=== PATIENT | female | born 1935 | race Caucasian/White ===

== ENCOUNTER → 2022-04-12 | Outpatient (REF) | payer MEDICARE, OTHER | LOC: M LAB REF 12:14 | PROVIDERS: ATTEND Registered Nurse | DX: R30.0 Dysuria (principal) ==

== ENCOUNTER 2022-06-05 16:53 | Inpatient (IN) | payer MEDICARE, OTHER ==
[~2022-06-05] VITALS: Ht 165.1 cm; Wt 97.9 kg
[2022-06-05] MEDS ORDERED: LEVO100T5 PO (17:04)
[2022-06-05] MEDS ORDERED: PREG100C PO (17:04)
[2022-06-05] MEDS ORDERED: DULO1CAP4 PO (17:04)
[2022-06-05] MEDS ORDERED: ACETAMINOPHEN 500 MG TAB PO ONE (18:10)
[2022-06-05 18:34] LABS: BASO % 0.4 % (0.0-1.0); HEMOGLOBIN 13.6 g/dl (12.0-15.5); LYMPH # 0.9 10^3/uL (1.5-5.0); LYMPH % 11.6 % (24.0-44.0); MEAN CORPUSCULAR HGB CONC 33.2 g/dl (32.0-36.5); MEAN CORPUSCULAR VOLUME 93.4 fl (80.0-96.0); MONO % 13.2 % (2.0-8.0); NEUTROPHILS # 5.8 10^3/uL (1.5-8.5); NEUTROPHILS % 74.5 % (36.0-66.0); PLATELET COUNT, AUTOMATED 166 10^3/uL (150-450); RED BLOOD COUNT 4.39 10^6/uL (4.00-5.40); WHITE BLOOD COUNT 7.7 10^3/uL (4.0-10.0)
[2022-06-05 18:47] VITALS: O2SAT 95
[2022-06-05] MEDS: ALBUTEROL 90 MCG/ACT 8GM HFA INHALER INH SCH ×3 (18:50→19:36)
[2022-06-05 18:52] LABS: INR 1.02; PROTHROMBIN TIME 13.8 SECONDS (12.7-14.5)
[2022-06-05 18:53] LABS: PARTIAL THROMBOPLASTIN TIME 34.8 SECONDS (25.9-37.0)
[2022-06-05 18:55] LABS: D-DIMER QUANT 824.77 ng/ml (<500)
[2022-06-05 19:08] LABS: CK-MB VALUE MASS < 1.0 NG/ML (<3.6); CPK CREATINE PHOSPHOKINASE 192 U/L (26-192); MB/CK RELATIVE INDEX 0.52 (< OR =4)
[2022-06-05 19:36] LABS: ALBUMIN 3.4 GM/DL (3.2-5.2); BILIRUBIN,TOTAL 0.7 MG/DL (0.2-1.0); CALCIUM LEVEL 8.9 MG/DL (8.8-10.2); CREATININE FOR GFR 1.07 MG/DL (0.55-1.30); GLOMERULAR FILTRATION RATE 51.6 (>32); POTASSIUM SERUM 4.2 MEQ/L (3.5-5.1); TOTAL PROTEIN 7.4 GM/DL (6.4-8.2)
[2022-06-05] MEDS ORDERED: ISOVUE-370 76% 100ML VIAL As Ordered ONE (19:37)
[2022-06-05] MEDS ORDERED: APAP325T4 PO (21:37)
[2022-06-05] MEDS ORDERED: MECL-86 PO (21:37)
[2022-06-05] MEDS ORDERED: FAMO1TAB11 PO (21:37)
[2022-06-05] MEDS ORDERED: HOME MED LIST COMPLETE! XX SCH (21:40)
[2022-06-05] MEDS ORDERED: NS 1,000 ML IV SCH (21:50)
[2022-06-05] MEDS ORDERED: guaiFENesin SYRUP 200MG 10ML UDC PO PRN (21:50)
[2022-06-05] MEDS ORDERED: COMBIVENT RESPIMAT 100-20MCG INHALER 4GM INH PRN (21:50)
[2022-06-05] MEDS ORDERED: REMDESIVIR 200 MG in NS 250 ML IV ONE (22:00)
[2022-06-05 22:19] LABS: FREE T4 1.14 NG/DL (0.76-1.46); THYROID STIMULATING HORMONE 0.659 uIU/ML (0.358-3.740)
[2022-06-05 22:20] VITALS: BP 122/51
[2022-06-05 22:45] VITALS: BP_SYST 111; BP_SYST 120; BP_SYST 122; BP_DIAS 51; BP_DIAS 58
[2022-06-05] MEDS: FAMOTIDINE 20 MG TAB PO SCH (23:29)
[2022-06-05] MEDS: PREGABALIN 100 MG CAP (LYRICA) PO SCH (23:29)
[2022-06-05] MEDS: ACETAMINOPHEN TAB 650MG DOSE (2X325MG) PO PRN (23:29)
[2022-06-05] MEDS: MECLIZINE 25 MG TABLET PO SCH (23:29)
[2022-06-05] MEDS: DULoxetine 20 MG CAP (CYMBALTA) PO SCH (23:56)
[2022-06-06] MEDS ORDERED: SODIUM CHLORIDE 0.9% INJ 10 ML SYR IV ONE
[2022-06-06 05:52] LABS: BASO % 0.4 % (0.0-1.0); EOS % 0.2 % (0.0-3.0); HEMATOCRIT 36.9 % (36.0-47.0); LYMPH % 21.6 % (24.0-44.0); MEAN CORPUSCULAR HEMOGLOBIN 30.2 pg (27.0-33.0); MEAN CORPUSCULAR HGB CONC 32.5 g/dl (32.0-36.5); MEAN CORPUSCULAR VOLUME 92.9 fl (80.0-96.0); MONO % 20.8 % (2.0-8.0); NEUTROPHILS # 2.7 10^3/uL (1.5-8.5); NEUTROPHILS % 56.8 % (36.0-66.0); PLATELET COUNT, AUTOMATED 144 10^3/uL (150-450); RED BLOOD COUNT 3.97 10^6/uL (4.00-5.40); WHITE BLOOD COUNT 4.8 10^3/uL (4.0-10.0)
[2022-06-06] MEDS: LEVOTHYROXINE 100MCG TABLET (0.1MG) PO SCH (06:08)
[2022-06-06 06:09] VITALS: BP 114/56
[2022-06-06 06:17] LABS: ALT/SGPT 15 U/L (12-78); BILIRUBIN,DIRECT 0.2 MG/DL (0.0-0.2); BILIRUBIN,TOTAL 0.5 MG/DL (0.2-1.0); BLOOD UREA NITROGEN 21 MG/DL (7-18); CALCIUM LEVEL 8.6 MG/DL (8.8-10.2); CARBON DIOXIDE LEVEL 26 MEQ/L (21-32); CHLORIDE LEVEL 106 MEQ/L (98-107); CREATININE FOR GFR 0.89 MG/DL (0.55-1.30); GLOMERULAR FILTRATION RATE > 60.0 (>32); GLUCOSE, FASTING 103 MG/DL (70-100); POTASSIUM SERUM 3.4 MEQ/L (3.5-5.1); SODIUM LEVEL 138 MEQ/L (136-145); TOTAL PROTEIN 6.4 GM/DL (6.4-8.2)
[2022-06-06] MEDS: ACETAMINOPHEN TAB 650MG DOSE (2X325MG) PO PRN ×2 (06:39→15:42)
[2022-06-06 06:43] LABS: APPEARANCE, URINE MANUAL CLEAR (CLEAR); COLOR, URINE MANUAL YELLOW (YELLOW); SPECIFIC GRAVITY,URINE MANUAL 1.015 (1.002-1.035)
[2022-06-06 06:44] LABS: BILIRUBIN, URINE MANUAL NEGATIVE (NEGATIVE); BLOOD URINE MANUAL POSITIVE (NEGATIVE); GLUCOSE, URINE (UA) MANUAL NEGATIVE (NEGATIVE); KETONE, URINE MANUAL NEGATIVE (NEGATIVE); LEUKOCYTE ESTERASE, URINE MAN NEGATIVE (NEGATIVE); NITRITE, URINE MANUAL NEGATIVE (NEGATIVE); PROTEIN, URINE MANUAL TRACE mg/dL (NEGATIVE); UROBILINOGEN, URINE MANUAL NORMAL (NORMAL)
[2022-06-06 07:02] LABS: RBC, URINE 0-1 /hpf (0-3); SQUAMOUS EPITHELIAL CELL URINE SMALL AMOUNT /hpf (SMALL AMT)
[2022-06-06 07:04] LABS: AMORPHOUS SEDIMENT, URINE SMALL AMOUNT (NEGATIVE); BACTERIA, URINE SMALL AMOUNT; HYALINE CAST, URINE NONE SEEN /lpf (0-1)
[2022-06-06] MEDS: MECLIZINE 25 MG TABLET PO SCH ×2 (08:25→20:01)
[2022-06-06] MEDS: PREGABALIN 100 MG CAP (LYRICA) PO SCH ×2 (08:25→20:01)
[2022-06-06] MEDS: ENOXAPARIN 40MG/0.4ML SYRINGE (J1650 PER 10MG) SC SCH (08:26)
[2022-06-06 14:00] VITALS: BP 130/73
[2022-06-06] MEDS: REMDESIVIR 100 MG in NS 250 ML IV SCH (15:20)
[2022-06-06] MEDS: SODIUM CHLORIDE 0.9% INJ 10 ML SYR IV SCH (15:20)
[2022-06-06 15:37] VITALS: BP_SYST 123; BP_SYST 128; BP_SYST 131; BP_DIAS 57; BP_DIAS 58; BP_DIAS 63
[2022-06-06 19:58] VITALS: BP 144/63
[2022-06-06] MEDS: DULoxetine 20 MG CAP (CYMBALTA) PO SCH (20:01)
[2022-06-06] MEDS: FAMOTIDINE 20 MG TAB PO SCH (20:01)
[2022-06-06] MEDS ORDERED: REMDESIVIR 100 MG in NS 250 ML IV SCH (21:00)
[2022-06-06] MEDS ORDERED: SODIUM CHLORIDE 0.9% INJ 10 ML SYR IV SCH (22:00)
[2022-06-07 05:35] VITALS: BP 99/52
[2022-06-07 05:45] VITALS: BP 141/69
[2022-06-07] MEDS: LEVOTHYROXINE 100MCG TABLET (0.1MG) PO SCH (05:45)
[2022-06-07 05:50] LABS: BASO % 0.8 % (0.0-1.0); EOS # 0.1 10^3/uL (0.0-0.5); EOS % 1.3 % (0.0-3.0); HEMATOCRIT 38.7 % (36.0-47.0); HEMOGLOBIN 12.8 g/dl (12.0-15.5); LYMPH # 1.2 10^3/uL (1.5-5.0); LYMPH % 30.9 % (24.0-44.0); MEAN CORPUSCULAR HEMOGLOBIN 30.5 pg (27.0-33.0); MEAN CORPUSCULAR HGB CONC 33.1 g/dl (32.0-36.5); MEAN CORPUSCULAR VOLUME 92.4 fl (80.0-96.0); MONO # 0.8 10^3/uL (0.0-0.8); MONO % 19.6 % (2.0-8.0); NEUTROPHILS # 1.8 10^3/uL (1.5-8.5); NEUTROPHILS % 47.1 % (36.0-66.0); PLATELET COUNT, AUTOMATED 148 10^3/uL (150-450); RED BLOOD COUNT 4.19 10^6/uL (4.00-5.40); WHITE BLOOD COUNT 3.8 10^3/uL (4.0-10.0)
[2022-06-07 06:00] VITALS: BP 99/52
[2022-06-07 06:00] LABS: INR 1.05; PROTHROMBIN TIME 14.1 SECONDS (12.7-14.5)
[2022-06-07 06:01] LABS: PARTIAL THROMBOPLASTIN TIME 39.2 SECONDS (25.9-37.0)
[2022-06-07 06:28] LABS: ALBUMIN 3.1 GM/DL (3.2-5.2); ALT/SGPT 20 U/L (12-78); BILIRUBIN,DIRECT 0.1 MG/DL (0.0-0.2); BILIRUBIN,TOTAL 0.4 MG/DL (0.2-1.0); BLOOD UREA NITROGEN 22 MG/DL (7-18); CALCIUM LEVEL 8.6 MG/DL (8.8-10.2); CARBON DIOXIDE LEVEL 24 MEQ/L (21-32); CHLORIDE LEVEL 107 MEQ/L (98-107); CREATININE FOR GFR 0.85 MG/DL (0.55-1.30); FERRITIN 214 NG/ML (8-252); GLOMERULAR FILTRATION RATE > 60.0 (>32); GLUCOSE, FASTING 87 MG/DL (70-100); LDH LACTATE DEHYDROGENASE 169 U/L (84-246); NT-PRO BNP 179 PG/ML (<450); SODIUM LEVEL 137 MEQ/L (136-145); TOTAL PROTEIN 6.8 GM/DL (6.4-8.2)
[2022-06-07] MEDS: ENOXAPARIN 40MG/0.4ML SYRINGE (J1650 PER 10MG) SC SCH (10:06)
[2022-06-07] MEDS: PREGABALIN 100 MG CAP (LYRICA) PO SCH (10:06)
[2022-06-07] MEDS: MECLIZINE 25 MG TABLET PO SCH (10:06)
[2022-06-07 13:19] VITALS: BP 124/62
[2022-06-07] MEDS: REMDESIVIR 100 MG in NS 250 ML IV SCH (13:24)
[2022-06-07] MEDS ORDERED: BENZ200C70 PO (13:41)
[2022-06-07] MEDS ORDERED: GUAI100L56 PO (13:41)
[2022-06-07] MEDS: SODIUM CHLORIDE 0.9% INJ 10 ML SYR IV SCH (14:36)
== END 2022-06-07 14:46 | disposition home health service (06) | DRG 178 ==
LOC: M ED 16:53 → M ED INP 16:54 → M MSPAV 22:15 → OBSVTOIN 06-06 08:02
PROVIDERS: ADMIT Family Medicine; ATTEND Internal Medicine
PROC: XW033E5 Introduction of Remdesivir Anti-infective into Peripheral Vein, Percutaneous Approach, New Technology Group 5 (ICD-10-PCS; principal; 2022-06-06)
DX: U07.1 COVID-19 (principal); J98.11 Atelectasis; R26.89 Other abnormalities of gait and mobility; K21.9 Gastro-esophageal reflux disease without esophagitis; E03.9 Hypothyroidism, unspecified; R42 Dizziness and giddiness; M19.90 Unspecified osteoarthritis, unspecified site; G62.9 Polyneuropathy, unspecified; E86.0 Dehydration; Z66 Do not resuscitate; F32.A Depression, unspecified; F41.9 Anxiety disorder, unspecified; R53.81 Other malaise; Z79.899 Other long term (current) drug therapy; Z91.013 Allergy to seafood; Z79.890 Hormone replacement therapy

== ENCOUNTER 2022-09-23 10:53 | Emergency (ER) | payer MEDICARE, OTHER ==
[~2022-09-23] VITALS: Ht 160 cm; Wt 93.2 kg
[~2022-09-23 10:53] MED LIST: APAP325T4 PO; BENZ200C70 PO; DULO1CAP4 PO; FAMO1TAB11 PO; GUAI100L56 PO; LEVO100T5 PO; MECL-86 PO; PREG100C PO
[2022-09-23 11:40] LABS: BASO % 0.5 % (0.0-1.0); EOS # 0.1 10^3/uL (0.0-0.5); EOS % 1.2 % (0.0-3.0); HEMATOCRIT 42.5 % (36.0-47.0); HEMOGLOBIN 13.9 g/dl (12.0-15.5); LYMPH # 1.5 10^3/uL (1.5-5.0); LYMPH % 18.7 % (24.0-44.0); MEAN CORPUSCULAR HGB CONC 32.7 g/dl (32.0-36.5); MEAN CORPUSCULAR VOLUME 94.7 fl (80.0-96.0); MONO # 0.5 10^3/uL (0.0-0.8); MONO % 6.6 % (2.0-8.0); NEUTROPHILS # 5.7 10^3/uL (1.5-8.5); NEUTROPHILS % 72.7 % (36.0-66.0); PLATELET COUNT, AUTOMATED 214 10^3/uL (150-450); RED BLOOD COUNT 4.49 10^6/uL (4.00-5.40); WHITE BLOOD COUNT 7.8 10^3/uL (4.0-10.0)
[2022-09-23 12:07] LABS: LIPASE 76 U/L (12-53)
[2022-09-23 12:09] LABS: ALBUMIN 3.7 G/DL (3.2-5.2); ALKALINE PHOSPHATASE 134 U/L (46-116); ALT/SGPT 43 U/L (7.0-40); AST/SGOT 36 U/L (<34); BILIRUBIN,DIRECT 0.2 MG/DL (<0.4); BILIRUBIN,TOTAL 0.4 MG/DL (0.3-1.2); BLOOD UREA NITROGEN 24 MG/DL (9-23); CALCIUM LEVEL 9.8 MG/DL (8.3-10.6); CARBON DIOXIDE LEVEL 22 MMOL/L (20-31); CHLORIDE LEVEL 107 MMOL/L (98-107); CREATININE FOR GFR 0.85 MG/DL (0.55-1.30); GLOMERULAR FILTRATION RATE > 60.0 (>32); GLUCOSE, FASTING 104 MG/DL (74-106); POTASSIUM SERUM 4.2 MMOL/L (3.5-5.1); SODIUM LEVEL 140 MMOL/L (136-145); TOTAL PROTEIN 7.4 G/DL (5.7-8.2)
[2022-09-23] MEDS ORDERED: NS 500 ML IV ONE (12:40)
[2022-09-23 13:04] LABS: CPK CREATINE PHOSPHOKINASE 195 U/L (34-145)
[2022-09-23 13:20] VITALS: BP 151/72
[2022-09-23 13:23] LABS: RSV AMPLIFICATION NEGATIVE (NEGATIVE)
[2022-09-23 14:38] LABS: APPEARANCE, URINE MANUAL HAZY (CLEAR); COLOR, URINE MANUAL YELLOW (YELLOW)
[2022-09-23 14:39] LABS: BILIRUBIN, URINE MANUAL NEGATIVE (NEGATIVE); BLOOD URINE MANUAL POSITIVE (NEGATIVE); GLUCOSE, URINE (UA) MANUAL NEGATIVE (NEGATIVE); KETONE, URINE MANUAL NEGATIVE (NEGATIVE); LEUKOCYTE ESTERASE, URINE MAN NEGATIVE (NEGATIVE); NITRITE, URINE MANUAL NEGATIVE (NEGATIVE); PROTEIN, URINE MANUAL 1+ mg/dL (NEGATIVE); UROBILINOGEN, URINE MANUAL NORMAL (NORMAL)
[2022-09-23 14:53] LABS: BACTERIA, URINE SMALL AMOUNT; CALCIUM OXALATE CRYSTALS,URINE SMALL AMOUNT /hpf; RBC, URINE NONE SEEN /hpf (0-3); SQUAMOUS EPITHELIAL CELL URINE SMALL AMOUNT /hpf (SMALL AMT)
[2022-09-23 14:54] LABS: HYALINE CAST, URINE NONE SEEN /lpf (0-1)
[2022-09-23] MEDS ORDERED: DICY10CA13 PO (16:15)
== END 2022-09-23 16:34 | disposition home or self-care (01) ==
LOC: M ED 10:53
DX: R19.7 Diarrhea, unspecified (principal); S09.90XA Unspecified injury of head, initial encounter; W19.XXXA Unspecified fall, initial encounter; Y92.002 Bathroom of unspecified non-institutional (private) residence as the place of occurrence of the external cause; Y93.89 Activity, other specified; E03.9 Hypothyroidism, unspecified; K21.9 Gastro-esophageal reflux disease without esophagitis; M85.88 Other specified disorders of bone density and structure, other site; Z79.890 Hormone replacement therapy

== ENCOUNTER → 2022-12-10 | Outpatient (REF) | payer MEDICARE, OTHER ==
[~2022-12-10] MED LIST changes: +DICY10CA13 PO
== END ==
LOC: M LAB REF 17:02
PROVIDERS: ATTEND Nurse Practitioner Family
DX: N39.0 Urinary tract infection, site not specified (principal)

== ENCOUNTER 2024-07-06 10:55 | Inpatient (IN) | payer MEDICARE, OTHER ==
[~2024-07-06] VITALS: Ht 152.4 cm; Wt 98.8 kg
[2024-07-06] MEDS: ASPIRIN 81MG ENTERIC TABLET PO SCH (09:00)
[~2024-07-06 10:55] MED LIST changes: +DICY-61 PO; -DICY10CA13 PO; -PREG100C PO; +PREG100C2 PO
[2024-07-06] MEDS: LIDOCAINE 2% 5ML JELLY UROJET TOP ONE (11:10)
[2024-07-06] MEDS ORDERED: ISOVUE-370 76% 100ML VIAL As Ordered ONE (11:16)
[2024-07-06 11:43] LABS: BASO % 0.6 % (0.0-1.0); EOS # 0.2 10^3/uL (0.0-0.5); EOS % 3.6 % (0.0-3.0); HEMATOCRIT 40.9 % (36.0-47.0); HEMOGLOBIN 13.5 g/dl (12.0-15.5); LYMPH # 1.5 10^3/uL (1.5-5.0); LYMPH % 29.2 % (24.0-44.0); MEAN CORPUSCULAR HEMOGLOBIN 31.7 pg (27.0-33.0); MONO # 0.5 10^3/uL (0.0-0.8); MONO % 9.1 % (2.0-8.0); NEUTROPHILS # 2.9 10^3/uL (1.5-8.5); NEUTROPHILS % 57.3 % (36.0-66.0); PLATELET COUNT, AUTOMATED 193 10^3/uL (150-450); RED BLOOD COUNT 4.26 10^6/uL (4.00-5.40)
[2024-07-06 11:58] LABS: INR 1.13; PARTIAL THROMBOPLASTIN TIME 31.3 SECONDS (24.8-34.2); PROTHROMBIN TIME 14.2 SECONDS (12.5-14.5)
[2024-07-06 12:16] LABS: CPK CREATINE PHOSPHOKINASE 70 U/L (34-145)
[2024-07-06 12:24] LABS: ALBUMIN 3.3 G/DL (3.2-5.2); ALKALINE PHOSPHATASE 103 U/L (46-116); ALT/SGPT 13 U/L (7.0-40); AST/SGOT 16 U/L (<34); BILIRUBIN,DIRECT 0.2 MG/DL (<0.4); BILIRUBIN,TOTAL 0.7 MG/DL (0.3-1.2); BLOOD UREA NITROGEN 15 MG/DL (9-23); CALCIUM LEVEL 9.1 MG/DL (8.3-10.6); CARBON DIOXIDE LEVEL 26 MMOL/L (20-31); CHLORIDE LEVEL 109 MMOL/L (98-107); CK-MB VALUE MASS < 1.0 NG/ML (<3.6); CREATININE FOR GFR 0.81 MG/DL (0.55-1.30); GLOMERULAR FILTRATION RATE > 60.0 (>32); GLUCOSE, FASTING 110 MG/DL (74-106); MB/CK RELATIVE INDEX 1.42 (< OR =4); POTASSIUM SERUM 4.2 MMOL/L (3.5-5.1); SODIUM LEVEL 138 MMOL/L (136-145); TOTAL PROTEIN 7.1 G/DL (5.7-8.2)
[2024-07-06 13:10] VITALS: O2SAT 96
[2024-07-06 13:12] VITALS: TEMP 98
[2024-07-06 13:25] VITALS: O2SAT 97
[2024-07-06] MEDS: cefTRIAXone SOD 1 GM in DEXTROSE 5% (D5W) MINI-BAG/ADV 50 ML IV ONE (13:48)
[2024-07-06] MEDS: NS 1,000 ML IV ONE (13:48)
[2024-07-06 13:55] LABS: CK-MB VALUE MASS < 1.0 NG/ML (<3.6)
[2024-07-06 13:57] LABS: CPK CREATINE PHOSPHOKINASE 65 U/L (34-145); MB/CK RELATIVE INDEX 1.53 (< OR =4)
[2024-07-06] MEDS ORDERED: MYRB25TA PO (14:30)
[2024-07-06] MEDS ORDERED: HOME MED LIST COMPLETE! XX SCH (14:35)
[2024-07-06] MEDS ORDERED: MAALOX 30 ML SUSP *UDC PO PRN (15:05)
[2024-07-06] MEDS ORDERED: MOM 30ML SUSPENSION UDC PO PRN (15:05)
[2024-07-06] MEDS ORDERED: ACETAMINOPHEN 325 MG TAB PO PRN (15:05)
[2024-07-06] MEDS: ATORVASTATIN 20 MG TAB PO ONE (15:15)
[2024-07-06] MEDS ORDERED: ASPIRIN 325 MG TAB PO ONE (16:00)
[2024-07-06] MEDS ORDERED: CLOPIDOGREL 75 MG TAB PO ONE (16:00)
[2024-07-06 16:12] LABS: HEMOGLOBIN A1c 5.6 % (4.0-6.0)
[2024-07-06 16:17] LABS: THYROID STIMULATING HORMONE 3.449 uIU/ML (0.55-4.78)
[2024-07-06 16:18] LABS: TOTAL 25(OH) VITAMIN D 24.2 NG/ML (20.0-100.0)
[2024-07-06 19:04] VITALS: BP 148/68; TEMP 98.3; O2SAT 95
[2024-07-06 19:47] VITALS: BP 147/74; TEMP 98.1; O2SAT 95
[2024-07-06 23:15] VITALS: BP 149/65; TEMP 98.8; O2SAT 93
[2024-07-07 03:28] VITALS: BP 139/65; TEMP 98; O2SAT 95
[2024-07-07 06:35] LABS: CHOLESTEROL RISK RATIO 5.76 (<5); HDL CHOLESTEROL 43.4 MG/DL (>40); LDL CHOLESTEROL 177.4 MG/DL (<100); NON-HDL-C 206.6 MG/DL
[2024-07-07 07:56] VITALS: BP 166/74; TEMP 98; O2SAT 95
[2024-07-07] MEDS: ATORVASTATIN 20 MG TAB PO SCH (08:27)
[2024-07-07] MEDS ORDERED: CLOPIDOGREL 75 MG TAB PO SCH (09:00)
[2024-07-07 12:00] VITALS: BP 147/69; TEMP 98.4; O2SAT 93
[2024-07-07] MEDS: cefTRIAXone SOD 1 GM in DEXTROSE 5% (D5W) MINI-BAG/ADV 50 ML IV SCH (13:22)
[2024-07-07 16:00] VITALS: BP 149/77; TEMP 98.3; O2SAT 95
[2024-07-07 19:00] VITALS: BP 151/67; TEMP 98.4; O2SAT 96
[2024-07-07 20:00] VITALS: BP 142/70; TEMP 98.4; O2SAT 96
[2024-07-07] MEDS: MECLIZINE 25 MG TABLET PO SCH (22:47)
[2024-07-07] MEDS: PREGABALIN 100 MG CAP (LYRICA) PO SCH (22:48)
[2024-07-07] MEDS: DULoxetine 20MG CAP (CYMBALTA) PO SCH (22:48)
[2024-07-07] MEDS: FAMOTIDINE 20 MG TAB PO SCH (22:48)
[2024-07-07] MEDS: HEPARIN SOD (PORCINE) 5000UNITS/ML 1ML VIAL/SYRINGE SC SCH (22:48)
[2024-07-08] VITALS (7 sets, daily range): BP systolic 135–156; BP diastolic 63–90; TEMP 97.1–98.6; O2SAT 96–98
[2024-07-08] MEDS: LEVOTHYROXINE 100MCG TABLET (0.1MG) PO SCH (05:41)
[2024-07-08 05:43] LABS: BLOOD UREA NITROGEN 16 MG/DL (9-23); CALCIUM LEVEL 9.1 MG/DL (8.3-10.6); CARBON DIOXIDE LEVEL 25 MMOL/L (20-31); CHLORIDE LEVEL 108 MMOL/L (98-107); CREATININE FOR GFR 0.83 MG/DL (0.55-1.30); GLOMERULAR FILTRATION RATE > 60.0 (>32); GLUCOSE, FASTING 107 MG/DL (74-106); MAGNESIUM LEVEL 1.8 MG/DL (1.8-2.4); POTASSIUM SERUM 4.1 MMOL/L (3.5-5.1); SODIUM LEVEL 141 MMOL/L (136-145)
[2024-07-08] MEDS: CEFDINIR 300 MG CAP (OMNICEF) PO SCH (08:47)
[2024-07-08] MEDS ORDERED: ASPI81TAEC PO (09:38)
[2024-07-08] MEDS ORDERED: ATOR80TA59 PO (09:38)
[2024-07-08] MEDS ORDERED: CEFD300CAP PO (09:38)
[2024-07-09] VITALS: BP 135/75; TEMP 97.4; O2SAT 97
[2024-07-09 05:04] VITALS: BP 134/75; TEMP 98.1; O2SAT 96
== END 2024-07-09 12:25 | disposition home health service (06) | DRG 65 ==
LOC: M ED 10:55 → EDBD 10:55 → M ED INP 15:04 → M PCU 18:31 → M MS5PR 07-08 17:33
PROVIDERS: ADMIT Student in an Organized Health Care Education/Training Program; ATTEND Student in an Organized Health Care Education/Training Program
PROC: B246ZZZ Ultrasonography of Right and Left Heart (ICD-10-PCS; principal; 2024-07-07)
DX: I63.532 Cerebral infarction due to unspecified occlusion or stenosis of left posterior cerebral artery (principal); N39.0 Urinary tract infection, site not specified; K21.9 Gastro-esophageal reflux disease without esophagitis; E03.9 Hypothyroidism, unspecified; E78.5 Hyperlipidemia, unspecified; F32.A Depression, unspecified; G62.9 Polyneuropathy, unspecified; B96.20 Unspecified Escherichia coli [E. coli] as the cause of diseases classified elsewhere; R47.01 Aphasia; Z79.82 Long term (current) use of aspirin; Z79.890 Hormone replacement therapy; Z79.899 Other long term (current) drug therapy; Z91.013 Allergy to seafood